=== PATIENT | male | born 2000 | race Caucasian/White ===

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

== ENCOUNTER 2021-10-10 15:45 | Outpatient (RCR) | payer BC | END 2021-10-13 | disposition home or self-care (01) | LOC: WSPT | DX: S43.401D Unspecified sprain of right shoulder joint, subsequent encounter (principal); X58.XXXD Exposure to other specified factors, subsequent encounter ==

== ENCOUNTER → 2021-10-24 15:00 | Outpatient (RCR) | payer BC | END | disposition home or self-care (01) | LOC: WSPT 10-15 14:47 | DX: Z01.818 Encounter for other preprocedural examination (principal); M23.611 Other spontaneous disruption of anterior cruciate ligament of right knee ==